=== PATIENT | female | born 1965 | race American Indian/Alaskan Native ===

== ENCOUNTER 2017-03-22 16:35 | Emergency (ER) | payer OTHER ==
[2017-03-22] MEDS ORDERED: DECADRON IM STA (21:22)
--- NOTE | 2017-03-22 21:22 | Emergency Department Report ---
ED Rash HPI - HPI Chief Complaint: Skin Rash Stated Complaint: RASH/POSS SHINGLES Time Seen by Provider: 03/22/17 21:07 Duration: 2 weeks Location: Abdomen, Upper Extremities, Lower Extremities Suspected Cause: Plant Rash Symptoms: Yes Itching, No Facial Swelling, No Tongue/Oral Swelling, No Breathing Difficulties, No Choking Sensation, No Wheezing/Dyspnea, No Peeling, No Blistering, No Fever, No Lightheaded, No Malaise, No Myalgias Severity: moderate (itching) Other History: Patient here reports that she has rash to both her legs 2 weeks. Reports that his itching and also spread into her abdomen and arms. She said it started after she worked in the yard. Reports patient with hydrocortisone cream, antifungal cream and to Benadryl with minimal relief. Denies any nausea vomiting. Denies any wheezing difficulty breathing or swallowing. Patient at 6 out of 10 but denies any pain. ED Review of Systems ROS: Stated complaint: RASH/POSS SHINGLES Other details as noted in HPI Comment: All other systems reviewed and negative Constitutional: denies: chills, fever ENT: denies: throat pain, congestion Respiratory: no symptoms reported Cardiovascular: denies: chest pain, palpitations, edema, syncope Gastrointestinal: denies: nausea, vomiting Skin: rash, pruritus. denies: lesions Neurological: denies: headache ED Past Medical Hx - Past Medical History Previous Medical History?: Yes Hx Hypertension: Yes Additional medical history: menopause - Surgical History Past Surgical History?: Yes Additional Surgical History: Tubaligation - Family History Family history: no significant - Social History Smoking Status: Current Every Day Smoker Substance Use Type: Alcohol, Prescribed - Medications Home Medications: Home Medications Medication Instructions Recorded Confirmed Last Taken Type Cetirizine HCl [ZyrTEC] 10 mg PO QAM #7 capsule 03/22/17 Unknown Rx methylPREDNISolone [Medrol] 4 mg PO QAM #1 tab.ds.pk 03/22/17 Unknown Rx Rash Exam - Exam General: Vital signs noted. No distress. Alert and acting appropriately. This is a 51-year-old female well-nourished well-developed in no acute distress. HEENT: No Periorbital Edema, No Conjuctival Injection, No Chemosis, No Perioral Edema, No Tongue Edema, No Uvular Edema, No Compromised Airway, No Drooling Lungs: Yes Good Air Exchange, No Wheezes, No Ronchi, No Stridor, No Cough, No Labored Respirations, No Retractions, No Use of Accessory Muscles, No Other Abnormal Lung Sounds Heart: Yes Regular, No Murmur Skin: Yes Urticarial Rash (legs sparsely scattered, arms, forearms and abdomen.) , Yes Encrustations (legs), No Maculopapular Rash, No Morbilliform rash, No Bulla(e), No Excoriations, No Weeping, No Tenderness, No Erythema, No Edema, No Other Other: Positive: Abdomen Normal, Neurologic Normal, Musculoskeletal Normal ED Course Vital Signs 03/22/17 16:50 Temperature 98.4 F Pulse Rate 83 Respiratory 18 Rate Blood Pressure 153/107 O2 Sat by Pulse 97 Oximetry Vital Signs 03/22/17 03/22/17 16:50 21:41 Temperature 98.4 F Pulse Rate 83 62 Respiratory 18 20 Rate Blood Pressure 153/107 Blood Pressure 171/96 [Left] O2 Sat by Pulse 97 99 Oximetry - Reevaluation(s) Reevaluation #1: 03/22/17 21:45 given Decadron 10 mg IM and emergency room. ED Medical Decision Making - Medical Decision Making ED course: Patient with contact dermatitis and pruritus. She was given Decadron 10 mg IM and emergency room. Patient discharged home with prescription for Medrol dosepak and Zyrtec. Instructions given to follow-up with seafood manager and 2-3 days. Critical care attestation.: If time is entered above; I have spent that time in minutes in the direct care of this critically ill patient, excluding procedure time. ED Disposition Clinical Impression: Pruritic disorder Contact dermatitis Qualifiers: Contact dermatitis type: unspecified Contact dermatitis trigger: unspecified trigger Qualified Code(s): L25.9 - Unspecified contact dermatitis, unspecified cause Disposition: DISCHARGED TO HOME OR SELFCARE Is pt being admited?: No Does the pt Need Aspirin: No Condition: Stable Instructions: Contact Dermatitis (ED) Additional Instructions: Follow-up with seafood manager in 2-3 days Prescriptions: Cetirizine HCl [ZyrTEC] 10 mg PO QAM #7 capsule methylPREDNISolone [Medrol] 4 mg PO QAM #1 tab.ds.pk Referrals: PRIMARY CARE, [Primary Care Provider] - 3-5 Days TUNG TONEY MD [Staff Physician] - 3-5 Days Forms: Work/School Release Form(ED)
[2017-03-22 21:42] VITALS: BP 171/96
== END 2017-03-22 21:53 | disposition home or self-care (01) ==
LOC: ED 16:35
DX: L25.9 Unspecified contact dermatitis, unspecified cause (principal); L29.9 Pruritus, unspecified; I10 Essential (primary) hypertension; F17.200 Nicotine dependence, unspecified, uncomplicated
CPT/HCPCS: 96372; 99282; J1100

== ENCOUNTER 2017-05-11 14:38 | Emergency (ER) | payer OTHER ==
[2017-05-11 14:46] VITALS: BP 147/110
[2017-05-11 15:46] LABS: Basophils % (Auto) 0.8 % (0.0-1.8); Eosinophils % (Auto) 2.4 % (0.0-4.3); Hematocrit 44.2 % (30.3-42.9); Hemoglobin 14.7 gm/dl (10.1-14.3); Mean Corpuscular HGB Conc 33 % (30-34); Mean Corpuscular Hemoglobin 31 pg (28-32); Mean Corpuscular Volume 92 fl (79-97); Platelet Count 152 K/mm3 (140-440); Red Blood Count 4.81 M/mm3 (3.65-5.03); Red Cell Distribution Width 14.8 % (13.2-15.2); White Blood Count 6.5 K/mm3 (4.5-11.0)
[2017-05-11 15:47] LABS: Alanine Aminotransferase 12 units/L (7-56); Albumin 4.1 g/dL (3.9-5); Albumin/Globulin Ratio 1.5 %; Alkaline Phosphatase 56 units/L (35-129); Anion Gap 15 mmol/L; BUN/Creatinine Ratio 16.66; Blood Urea Nitrogen 15 mg/dL (7-17); Calcium 9.3 mg/dL (8.4-10.2); Carbon Dioxide 24 mmol/L (22-30); Chloride 105.2 mmol/L (98-107); Glucose 99 mg/dL (65-100); Lipase 27 units/L (13-60); Potassium 3.5 mmol/L (3.6-5.0); Sodium 141 mmol/L (137-145); Total Protein 6.9 g/dL (6.3-8.2)
[2017-05-11 16:02] LABS: Bilirubin,Urine NEG (Negative); Blood,Urine SM (Negative); Ketones,Urine NEG (Negative); Leukocyte Esterase,Urine NEG (Negative); Mucus,Urine FEW /HPF; Nitrite,Urine NEG (Negative); Protein,Urine <15 mg/dL mg/dL (Negative); Urobilinogen,Urine < 2.0 mg/dL (<2.0)
--- NOTE | 2017-05-14 00:43 | ED Elopement Review ---
ED Pt Elopement review - Results review Lab results: Laboratory Tests 05/11/17 05/11/17 05/11/17 15:12 15:12 15:13 WBC 6.5 RBC 4.81 Hgb 14.7 H Hct 44.2 H MCV 92 MCH 31 MCHC 33 RDW 14.8 Plt Count 152 Lymph % (Auto) 40.9 H M[place] % (Auto) 7.3 Eos % (Auto) 2.4 Baso % (Auto) 0.8 Lymph # 2.7 [place] # 0.5 Eos # 0.2 Baso # 0.1 Seg Neutrophils % 48.6 Seg Neutrophils # 3.2 Sodium 141 Potassium 3.5 L Chloride 105.2 Carbon Dioxide 24 Anion Gap 15 BUN 15 Creatinine 0.9 Estimated GFR > 60 BUN/Creatinine Ratio 16.66 Glucose 99 Calcium 9.3 Total Bilirubin 0.30 AST 15 ALT 12 Alkaline Phosphatase 56 Total Protein 6.9 Albumin 4.1 Albumin/Globulin Ratio 1.5 Lipase 27 Urine Color Yellow Urine Turbidity Clear Urine pH 6.0 Ur Specific Desdemona 1.015 Urine Protein <15 mg/dl Urine Glucose (UA) Neg Urine Ketones Neg Urine Blood Sm Urine Nitrite Neg Urine Bilirubin Neg Urine Urobilinogen < 2.0 Ur Leukocyte Esterase Neg Urine WBC (Auto) 1.0 Urine RBC (Auto) 2.0 U Epithel Cells (Auto) 1.0 Urine Mucus Few - Call Back decision Pt Call Back Decision: No action required
== END 2017-05-11 16:10 | disposition left against medical advice (07) ==
LOC: ED 14:38
DX: R10.9 Unspecified abdominal pain (principal); Z53.21 Procedure and treatment not carried out due to patient leaving prior to being seen by health care provider
CPT/HCPCS: 36415; 80053; 81001; 83690; 85025